=== PATIENT | female | born 1995 | race Caucasian/White ===

== ENCOUNTER 2020-04-11 09:46 | Inpatient (IN) | payer BC, MEDICAID ==
[2020-04-11] MEDS ORDERED: Nalbuphine 10 MG/ML Syringe IVPUSH PRN (10:10)
[2020-04-11] MEDS ORDERED: Sodium Chloride 0.9% 10 ML Syringe FLUSH PRN (10:10)
[2020-04-11] MEDS ORDERED: Oxytocin/Lactated Ringers 10 UNIT/1,000 ML BAG IV SCH ×2 (10:15→15:15)
[2020-04-11] MEDS: Lactated Ringers 1,000 ML IV SCH ×3 (10:30→12:33)
--- NOTE | 2020-04-11 10:34 | PCM.LDHP ---
L&D History of Present Illness - General Date of Service: 04/11/20 Admit Problem/Dx: Patient Status Order with Admit Dx/Problem 04/11/20 09:54 Patient Status [ADT] Routine 04/11/20 10:10 Patient Status [ADT] Routine Admission Diagnosis/Problem Admission Diagnosis/Problem Source of Information: Patient History Limitations: Reports: No Limitations - History of Present Illness Introduction:: Patient is a 24 y/o at 39 6/7 wks who presents in labor. History of c- section for FTP in 1st stage with 1st baby and then 2 successful VBACs. Contractions started around 0300 this AM. No LOF yet. Doing well. 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 (Approximate): - Past Surgical History Female Surgical History: Reports: Section Musculoskeletal Surgical History: Reports: Shoulder Surgery Social & Family History - Tobacco Use Tobacco Use Status *Q: Never Tobacco User - Alcohol Use Alcohol Use History: No - Recreational Drug Use Recreational Drug Use: No H&P Review of Systems - Review of Systems: Review Of Systems: See Below General: Reports: No Symptoms Pulmonary: Reports: No Symptoms Cardiovascular: Reports: No Symptoms Gastrointestinal: Reports: Abdominal Pain Genitourinary: Reports: No Symptoms Musculoskeletal: Reports: No Symptoms Psychiatric: Reports: No Symptoms Neurological: Reports: No Symptoms L&D Exam - Exam Exam: See Below - Vital Signs Weight: 111.538 kg - OB Specific Contraction Intensity: Moderate to Strong Movement: Active Heart Tones: Present Heart Tones per Min: 135 Heart Rate (FHR) Variability: Moderate (6-25 bmp) Presentation: Vertex - Gan Score Gan Score Cervix Position: Posterior Gan Score Consistency: Soft Gan Score Effacement: 51-70% Gan Score Dilation: > 5 cm (4-5) Gan Score Infant's Station: -2 Gan Score Total: 8 - Exam General: Alert, Oriented, Cooperative Lungs: Clear to Auscultation, Normal Respiratory Effort Cardiovascular: Regular Rate, Regular Rhythm GI/Abdominal Exam: Soft, Non-Tender Genitourinary: Normal external exam Extremities: Normal Inspection Skin: Warm, Dry, Intact - Problem List (1) 39 weeks gestation of SNOMED Code(s): 43731686 ICD Code: Z3A.39 - 39 WEEKS GESTATION OF Status: Acute Current Visit: Yes (2) History of delivery SNOMED Code(s): 398358408 ICD Code: Z98.891 - HISTORY OF UTERINE SCAR FROM PREVIOUS SURGERY Status: Acute Current Visit: Yes (3) History of SNOMED Code(s): 388913580, 154687114 ICD Code: Z98.891 - HISTORY OF UTERINE SCAR FROM PREVIOUS SURGERY Status: Acute Current Visit: Yes (4) Normal labor SNOMED Code(s): 99806427 ICD Code: O80 - ENCOUNTER FOR FULL-TERM UNCOMPLICATED DELIVERY; Z37.9 - OUTCOME OF DELIVERY, UNSPECIFIED Status: Acute Current Visit: Yes Problem List Initiated/Reviewed/Updated: Yes Orders Last 24hrs: Active Orders 24 hr Category Date Time Status Patient Status [ADT] Routine ADT 04/11/20 09:54 Active Patient Status [ADT] Routine ADT 04/11/20 10:10 Active Activity as Tolerated [RC] PFP Care 04/11/20 10:10 Active Communication Order [RC] ASDIRECTED Care 04/11/20 10:10 Active Heart Tones [RC] ASDIRECTED Care 04/11/20 10:10 Active Non Stress Test [RC] PER UNIT ROUTINE Care 04/11/20 09:54 Active Notify Provider [RC] PFP Care 04/11/20 10:10 Active Notify Provider [RC] PRN Care 04/11/20 10:10 Active Peripheral IV Care [RC] . DIRECTED Care 04/11/20 10:10 Active Vital Signs [RC] PER UNIT ROUTINE Care 04/11/20 09:54 Active Regular Diet [DIET] Diet 04/11/20 Lunch Active CBC WITH AUTO DIFF [HEME] Stat Lab 04/11/20 10:10 Ordered CORONAVIRUS COVID-19 JELANI [MOLEC] Stat Lab 04/11/20 10:21 Received RAPID PLASMA REAGIN,RPR [CHEM] Routine Lab 04/11/20 10:10 Ordered TYPE AND SCREEN [BBK] Stat Lab 04/11/20 10:10 Ordered Lactated Ringers [Ringers, Lactated] 1,000 ml Med 04/11/20 10:15 Active IV ASDIRECTED Nalbuphine [Nubain] Med 04/11/20 10:10 Active 10 mg IVPUSH Q2H PRN Oxytocin/Lactated Ringers [Pitocin in LR 10 Units/1,000 Med 04/11/20 10:15 Active ML] 10 unit in 1,000 ml IV .CONTINUOUS Sodium Chloride 0.9% [Saline Flush] Med 04/11/20 10:10 Active 10 ml FLUSH ASDIRECTED PRN Electronic Heart Tones Ext w TOCO [WOMSER] Oth 04/11/20 10:10 Ordered Routine Electronic Heart Tones Internal [WOMSER] Per Unit Oth 04/11/20 10:10 Ordered Routine Peripheral IV Insertion Adult [OM.PC] Routine Oth 04/11/20 10:10 Ordered Resuscitation Status Routine Resus Stat 04/11/20 09:54 Ordered Medication Orders Lactated Ringer's (Ringers, Lactated) 1,000 mls @ 100 mls/hr IV ASDIRECTED DUNCAN Oxytocin/Lactated Ringer's (Pitocin In Lr 10 Units/1,000 Ml) 10 unit in 1,000 mls @ 500 mls/hr IV .CONTINUOUS DUNCAN Nalbuphine HCl (Nubain) 10 mg IVPUSH Q2H PRN PRN Reason: Pain Sodium Chloride (Saline Flush) 10 ml FLUSH ASDIRECTED PRN PRN Reason: Keep Vein Open Assessment/Plan Comment:: * Labs done * GBS negative, no need for antibiotics * Pain control - plans epidural * Anticipate
[2020-04-11] MEDS ORDERED: ePHEDrine 50 MG/ML SDV IVPUSH PRN (11:07)
[2020-04-11] MEDS ORDERED: fentaNYL 100 MCG/2 ML SDV EPIDUR PRN (11:07)
[2020-04-11] MEDS ORDERED: Bupivacaine/fentaNYL/NS 100 ML Bag EPIDUR PRN (11:07)
[2020-04-11] MEDS ORDERED: diphenhydrAMINE 50 MG/ML SDV IVPUSH PRN (11:07)
--- NOTE | 2020-04-11 11:36 | PCM.PREANE ---
Preanesthetic Assessment - Procedure Proposed Procedure: kenisha - Anesthesia/Transfusion/Family Hx Anesthesia History: Prior Anesthesia Without Reaction Family History of Anesthesia Reaction: No Transfusion History: No Prior Transfusion(s) - Review of Systems General: No Symptoms Pulmonary: No Symptoms Cardiovascular: No Symptoms Gastrointestinal: No Symptoms Neurological: No Symptoms Other: Reports: None - Physical Assessment Vital Signs: Last Vital Signs Temp 97.8 F 04/11/20 09:54 Pulse 88 04/11/20 09:54 Resp 16 04/11/20 09:54 BP 122/66 04/11/20 09:54 Pulse Ox 100 04/11/20 09:54 Height: 5 ft 11 in Weight: 111.538 kg ASA Class: 2 Mental Status: Alert & Oriented x3 Airway Class: Mallampati = 1 Dentition: Reports: Normal Dentition Thyro-Mental Finger Breadths: 3 Mouth Opening Finger Breadths: 3 ROM/Head Extension: Full Lungs: Clear to Auscultation, Normal Respiratory Effort Cardiovascular: Regular Rate, Regular Rhythm - Lab Values: Laboratory Last Values WBC 9.46 K/mm3 (3.98-10.04) 04/11/20 10:40 RBC 4.22 M/mm3 (3.98-5.22) 04/11/20 10:40 Hgb 12.6 gm/dl (11.2-15.7) 04/11/20 10:40 Hct 37.0 % (34.1-44.9) 04/11/20 10:40 MCV 87.7 fl (79.4-94.8) 04/11/20 10:40 MCH 29.9 pg (25.6-32.2) 04/11/20 10:40 MCHC 34.1 g/dl (32.2-35.5) 04/11/20 10:40 RDW Std Deviation 40.9 fL (36.4-46.3) 04/11/20 10:40 Plt Count 231 K/mm3 (182-369) 04/11/20 10:40 MPV 9.2 fl (9.4-12.3) L 04/11/20 10:40 Neut % (Auto) 76.2 % (34.0-71.1) H 04/11/20 10:40 Lymph % (Auto) 16.0 % (19.3-51.7) L 04/11/20 10:40 [place] % (Auto) 7.1 % (4.7-12.5) 04/11/20 10:40 Eos % (Auto) 0.5 (0.7-5.8) L 04/11/20 10:40 Baso % (Auto) 0.1 % (0.1-1.2) 04/11/20 10:40 Neut # (Auto) 7.21 K/mm3 (1.56-6.13) H 04/11/20 10:40 Lymph # (Auto) 1.51 K/mm3 (1.18-3.74) 04/11/20 10:40 [place] # (Auto) 0.67 K/mm3 (0.24-0.36) H 04/11/20 10:40 Eos # (Auto) 0.05 K/mm3 (0.04-0.36) 04/11/20 10:40 Baso # (Auto) 0.01 K/mm3 (0.01-0.08) 04/11/20 10:40 SARS-CoV-2 RNA (JELANI) Negative (NEGATIVE) 04/11/20 10:21 - Allergies Allergies/Adverse Reactions: Allergies Allergy/AdvReac Type Severity Reaction Status Date / Time No Known Allergies Allergy Verified 04/11/20 10:30 - Blood Blood Available: No - Acknowledgements Anesthesia Type Planned: Epidural Pt an Appropriate Candidate for the Planned Anesthesia: Yes Alternatives and Risks of Anesthesia Discussed w Pt/Guardian: Yes Pt/Guardian Understands and Agrees with Anesthesia Plan: Yes PreAnesthesia Questionnaire Cardiovascular History: Reports: None Respiratory History: Reports: None Gastrointestinal History: Reports: None 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 - Past Surgical History Female Surgical History: Reports: Section Musculoskeletal Surgical History: Reports: Shoulder Surgery - SUBSTANCE USE Tobacco Use Status *Q: Never Tobacco User Tobacco Use Within Last Twelve Months: No Second Hand Smoke Exposure: No Days Per Week of Alcohol Use: 0 Recreational Drug Use History: No - HOME MEDS Home Medications: Home Meds Pnv No.95/Ferrous Fum/Folic AC [ Vitamin Tablet] 1 tab PO DAILY 04/11/20 [History] - CURRENT (IN HOUSE) MEDS Current Meds: Current Medications Diphenhydramine HCl (Benadryl) 25 mg IVPUSH Q6H PRN PRN Reason: pruritis Ephedrine Sulfate (Ephedrine Sulfate) 5 mg IVPUSH ASDIRECTED PRN PRN Reason: Hypotension Fentanyl (Sublimaze) 100 mcg EPIDUR Q3H PRN PRN Reason: Pain Last Admin: 04/11/20 11:16 Dose: 100 mcg Documented by: Fentanyl/Bupivacaine HCl (Fentanyl/Bupivacaine/Ns 2 Mcg-0.125% 100 Ml) 100 ml EPIDUR ASDIRECTED PRN PRN Reason: Pain Last Admin: 04/11/20 11:16 Dose: 100 ml Documented by: Lactated Ringer's (Ringers, Lactated) 1,000 mls @ 100 mls/hr IV ASDIRECTED DUNCAN Last Admin: 04/11/20 11:18 Dose: 100 mls/hr Documented by: Oxytocin/Lactated Ringer's (Pitocin In Lr 10 Units/1,000 Ml) 10 unit in 1,000 mls @ 500 mls/hr IV .CONTINUOUS DUNCAN Nalbuphine HCl (Nubain) 10 mg IVPUSH Q2H PRN PRN Reason: Pain Sodium Chloride (Saline Flush) 10 ml FLUSH ASDIRECTED PRN PRN Reason: Keep Vein Open
[2020-04-11] MEDS ORDERED: Bupivacaine 0.25% 10 ML SDV ONE (16:00)
--- NOTE | 2020-04-11 17:18 | PCM.DEL ---
L & D Note - General Info Date of Service: 04/11/20 Mother's Due Date: 04/12/20 - Delivery Note Labor: Spontaneous Delivery Outcome: Livebirth Infant Delivery Method: Spontaneous Vaginal Delivery-Single Presentation: Right Occiput Anterior (HUBER) Nuchal Cord: None Anesthesia Type: Epidural Amniotic Fluid Description: Clear Episiotomy Type: None Laceration: None Placenta: Intact, Spontaneous Cord: 3 Vessels Estimated Blood Loss: 100 Resuscitation Needed: No [place]: Suctioned, Stimulated, Warmed, [place] Used Provider: Alejandra Melara Score 1 min: 8 Score 5 min: 9 Delivery Comments (Free Text/Narrative):: 24 year old female who presented in spontaneous labor at 39+6 weeks gestation. She has had a prior , but 2 successful 's. She had AROM done to augment labor. 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 Dr. Salamanca asked me to come down to deliver baby since she had just started with the . When I arrived, patient was in no distress but feeling pressure. We had her prepped and start pushing. Head was delivered with the first push from HUBER presentation, there was no nuchal cord and then the rest of the baby delivered without difficulty. Time of delivery was 1653, baby girl. She cried immediately and had good tone. She was dried and stimulated and placed on mother's abdomen. Mouth and nose were suctioned with bulb suction. Once cord stopped pulsating it was clamped and cut. There were 3 vessels in the cord. Placenta delivered spontaneously at 1658 and it was intact. There was no perineal tear. Fundus was firm and EBL was 100 ml. Pitocin IV bolus was started after delivery of the baby. Both Mom and baby were left in the delivery room in stable condition. - General Info Date of Service: 04/11/20 Admission Dx/Problem (Free Text): Patient Status Order with Admit Dx/Problem 04/11/20 09:54 Patient Status [ADT] Routine 04/11/20 10:10 Patient Status [ADT] Routine Admission Diagnosis/Problem Admission Diagnosis/Problem - Review of Systems General: Reports: No Symptoms HEENT: Reports: No Symptoms Pulmonary: Reports: No Symptoms Cardiovascular: Reports: No Symptoms Gastrointestinal: Reports: No Symptoms Genitourinary: Reports: No Symptoms Musculoskeletal: Reports: No Symptoms Skin: Reports: No Symptoms Neurological: Reports: No Symptoms Psychiatric: Reports: No Symptoms - Patient Data Vitals - Most Recent: Last Vital Signs Temp 36.6 C 04/11/20 09:54 Pulse 88 04/11/20 09:54 Resp 16 04/11/20 09:54 BP 122/66 04/11/20 09:54 Pulse Ox 100 04/11/20 09:54 Weight - Most Recent: 111.538 kg I&O - Last 24 Hours: Intake & Output 04/11/20 04/11/20 04/11/20 06:59 14:59 22:59 Intake Total 1000 Balance 1000 Lab Results Last 24 Hours: Laboratory Results - last 24 hr 04/11/20 04/11/20 04/11/20 Range/Units 10:21 10:40 10:40 WBC 9.46 (3.98-10.04) K/mm3 RBC 4.22 (3.98-5.22) M/mm3 Hgb 12.6 (11.2-15.7) gm/dl Hct 37.0 (34.1-44.9) % MCV 87.7 (79.4-94.8) fl MCH 29.9 (25.6-32.2) pg MCHC 34.1 (32.2-35.5) g/dl RDW Std Deviation 40.9 (36.4-46.3) fL Plt Count 231 (182-369) K/mm3 MPV 9.2 L (9.4-12.3) fl Neut % (Auto) 76.2 H (34.0-71.1) % Lymph % (Auto) 16.0 L (19.3-51.7) % [place] % (Auto) 7.1 (4.7-12.5) % Eos % (Auto) 0.5 L (0.7-5.8) Baso % (Auto) 0.1 (0.1-1.2) % Neut # (Auto) 7.21 H (1.56-6.13) K/mm3 Lymph # (Auto) 1.51 (1.18-3.74) K/mm3 [place] # (Auto) 0.67 H (0.24-0.36) K/mm3 Eos # (Auto) 0.05 (0.04-0.36) K/mm3 Baso # (Auto) 0.01 (0.01-0.08) K/mm3 SARS-CoV-2 RNA (JELANI) Negative (NEGATIVE) Blood Type O POSITIVE Gel Antibody Screen Negative Med Orders - Current: Current Medications Diphenhydramine HCl (Benadryl) 25 mg IVPUSH Q6H PRN PRN Reason: pruritis Ephedrine Sulfate (Ephedrine Sulfate) 5 mg IVPUSH ASDIRECTED PRN PRN Reason: Hypotension Fentanyl (Sublimaze) 100 mcg EPIDUR Q3H PRN PRN Reason: Pain Last Admin: 04/11/20 11:16 Dose: 100 mcg Documented by: Fentanyl/Bupivacaine HCl (Fentanyl/Bupivacaine/Ns 2 Mcg-0.125% 100 Ml) 100 ml EPIDUR ASDIRECTED PRN PRN Reason: Pain Last Admin: 04/11/20 11:16 Dose: 100 ml Documented by: Lactated Ringer's (Ringers, Lactated) 1,000 mls @ 100 mls/hr IV ASDIRECTED DUNCAN Last Admin: 04/11/20 12:33 Dose: 100 mls/hr Documented by: Oxytocin/Lactated Ringer's (Pitocin In Lr 10 Units/1,000 Ml) 10 unit in 1,000 mls @ 500 mls/hr IV .CONTINUOUS DUNCAN Oxytocin/Lactated Ringer's (Pitocin In Lr 10 Units/1,000 Ml) 10 unit in 1,000 mls @ 12 mls/hr IV TITRATE DUNCAN; Protocol Last Admin: 04/11/20 15:13 Dose: 2 munits/min, 12 mls/hr Documented by: Nalbuphine HCl (Nubain) 10 mg IVPUSH Q2H PRN PRN Reason: Pain Sodium Chloride (Saline Flush) 10 ml FLUSH ASDIRECTED PRN PRN Reason: Keep Vein Open - Exam General: Alert, Oriented HEENT: Mucous Membr. Moist/[place] Neck: Supple Lungs: Normal Respiratory Effort Cardiovascular: Regular Rate, Regular Rhythm (Female) Exam: Normal External Exam Skin: Warm Neurological: No New Focal Deficit Psy/Mental Status: Alert, Normal Affect, Normal Mood - Problem List & Annotations (1) , delivered, current hospitalization SNOMED Code(s): 255260414 Code(s): O34.219 - MATERNAL CARE FOR UNSP TYPE SCAR FROM PREVIOUS DEL Status: Acute Current Visit: Yes (2) 39 weeks gestation of SNOMED Code(s): 75847487 Code(s): Z3A.39 - 39 WEEKS GESTATION OF Status: Acute Current Visit: Yes (3) History of SNOMED Code(s): 779829899, 940654478 Code(s): Z98.891 - HISTORY OF UTERINE SCAR FROM PREVIOUS SURGERY Status: Acute Current Visit: Yes (4) History of delivery SNOMED Code(s): 926264173 Code(s): Z98.891 - HISTORY OF UTERINE SCAR FROM PREVIOUS SURGERY Status: Acute Current Visit: Yes - Problem List Review Problem List Initiated/Reviewed/Updated: Yes - Assessment Assessment:: after spontaneous onset of labor. Uncomplicated delivery. Minimal blood loss Plans to breast feed. - Plan Plan:: 1. Routine care and support. 2. Dr. Salamanca will assume care and round on her over the weekend.
[2020-04-11] MEDS ORDERED: Witch Hazel Medicated Pads 40/Jar TOP PRN (18:10)
[2020-04-11] MEDS ORDERED: Benzocaine/Menthol 20%-0.5% Spray 56 GM Canister TOP PRN (18:10)
[2020-04-11] MEDS ORDERED: Simethicone 80 MG Tab.Chew PO PRN (18:10)
[2020-04-11] MEDS ORDERED: Acetaminophen 325 MG Tab PO PRN (18:10)
[2020-04-11] MEDS ORDERED: Docusate Sodium 100 MG Cap PO PRN (18:10)
[2020-04-11] MEDS: Ibuprofen 800 MG Tab PO PRN (21:57)
[2020-04-12] MEDS: Ibuprofen 800 MG Tab PO PRN ×2 (06:35→15:30)
--- NOTE | 2020-04-12 06:54 | PCM.DCSUM1 ---
Discharge Summary - Hospital Course Brief History: Desires discharge at day #1 Diagnosis: Stroke: No - Discharge Data Discharge Date: 04/12/20 Discharge Disposition: Home, Self-Care 01 Condition: Good - Referral to Home Health Primary Care Physician: Isabelle Centeno MD - Patient Instructions Diet: Usual Diet as Tolerated Activity: No Strenuous Activities Driving: May Drive Today Showering/Bathing: May Shower Notify Provider of: Fever, Increased Pain, Swelling and Redness, Drainage, Nausea and/or Vomiting - Discharge Plan *PRESCRIPTION DRUG MONITORING PROGRAM REVIEWED*: No *COPY OF PRESCRIPTION DRUG MONITORING REPORT IN PATIENT BJORN: No Home Medications: Home Meds Pnv No.95/Ferrous Fum/Folic AC [ Vitamin Tablet] 1 tab PO DAILY 04/11/20 [History] Referrals: Isabelle Centeno MD [Primary Care Provider] - (2 weeks) - Discharge Summary/Plan Comment DC Time >30 min.: No - Patient Data Vitals - Most Recent: Last Vital Signs Temp 36.1 C 04/12/20 03:16 Pulse 52 L 04/12/20 03:16 Resp 16 04/12/20 03:16 BP 120/65 04/12/20 03:16 Pulse Ox 100 04/12/20 03:16 Weight - Most Recent: 111.538 kg I&O - Last 24 hours: Intake & Output 04/11/20 04/11/20 04/12/20 14:59 22:59 06:59 Intake Total 1000 Balance 1000 Lab Results - Last 24 hrs: Laboratory Results - last 24 hr 04/11/20 04/11/20 04/11/20 Range/Units 10:21 10:40 10:40 WBC 9.46 (3.98-10.04) K/mm3 RBC 4.22 (3.98-5.22) M/mm3 Hgb 12.6 (11.2-15.7) gm/dl Hct 37.0 (34.1-44.9) % MCV 87.7 (79.4-94.8) fl MCH 29.9 (25.6-32.2) pg MCHC 34.1 (32.2-35.5) g/dl RDW Std Deviation 40.9 (36.4-46.3) fL Plt Count 231 (182-369) K/mm3 MPV 9.2 L (9.4-12.3) fl Neut % (Auto) 76.2 H (34.0-71.1) % Lymph % (Auto) 16.0 L (19.3-51.7) % [place] % (Auto) 7.1 (4.7-12.5) % Eos % (Auto) 0.5 L (0.7-5.8) Baso % (Auto) 0.1 (0.1-1.2) % Neut # (Auto) 7.21 H (1.56-6.13) K/mm3 Lymph # (Auto) 1.51 (1.18-3.74) K/mm3 [place] # (Auto) 0.67 H (0.24-0.36) K/mm3 Eos # (Auto) 0.05 (0.04-0.36) K/mm3 Baso # (Auto) 0.01 (0.01-0.08) K/mm3 RPR Non-reactive (NONREACTIVE) SARS-CoV-2 RNA (JELANI) Negative (NEGATIVE) Blood Type Gel Antibody Screen 04/11/20 Range/Units 10:40 WBC (3.98-10.04) K/mm3 RBC (3.98-5.22) M/mm3 Hgb (11.2-15.7) gm/dl Hct (34.1-44.9) % MCV (79.4-94.8) fl MCH (25.6-32.2) pg MCHC (32.2-35.5) g/dl RDW Std Deviation (36.4-46.3) fL Plt Count (182-369) K/mm3 MPV (9.4-12.3) fl Neut % (Auto) (34.0-71.1) % Lymph % (Auto) (19.3-51.7) % [place] % (Auto) (4.7-12.5) % Eos % (Auto) (0.7-5.8) Baso % (Auto) (0.1-1.2) % Neut # (Auto) (1.56-6.13) K/mm3 Lymph # (Auto) (1.18-3.74) K/mm3 [place] # (Auto) (0.24-0.36) K/mm3 Eos # (Auto) (0.04-0.36) K/mm3 Baso # (Auto) (0.01-0.08) K/mm3 RPR (NONREACTIVE) SARS-CoV-2 RNA (JELANI) (NEGATIVE) Blood Type O POSITIVE Gel Antibody Screen Negative Med Orders - Current: Current Medications Acetaminophen (Tylenol) 650 mg PO Q4H PRN PRN Reason: mild pain or fever Benzocaine/Menthol (Dermoplast Pain Relief [place]) 0 gm TOP ASDIRECTED PRN PRN Reason: Perineal Comfort Measure Docusate Sodium (Colace) 100 mg PO BID PRN PRN Reason: Constipation Ibuprofen (Motrin) 800 mg PO Q6H PRN PRN Reason: Mild pain or fever Last Admin: 04/12/20 06:35 Dose: 800 mg Documented by: Kristen Multivit/[place]/Iron/Folic Ac ( Plus Iron) 1 each PO DAILY DUNCAN Simethicone (Simethicone) 80 mg PO Q4H PRN PRN Reason: Gas Witch Joanna (Tucks) 1 pad TOP ASDIRECTED PRN PRN Reason: Perineal Comfort Measure Discontinued Medications Diphenhydramine HCl (Benadryl) 25 mg IVPUSH Q6H PRN PRN Reason: pruritis Ephedrine Sulfate (Ephedrine Sulfate) 5 mg IVPUSH ASDIRECTED PRN PRN Reason: Hypotension Fentanyl (Sublimaze) 100 mcg EPIDUR Q3H PRN PRN Reason: Pain Last Admin: 04/11/20 11:16 Dose: 100 mcg Documented by: Fentanyl/Bupivacaine HCl (Fentanyl/Bupivacaine/Ns 2 Mcg-0.125% 100 Ml) 100 ml EPIDUR ASDIRECTED PRN PRN Reason: Pain Last Admin: 04/11/20 11:16 Dose: 100 ml Documented by: Lactated Ringer's (Ringers, Lactated) 1,000 mls @ 100 mls/hr IV ASDIRECTED DUNCAN Last Admin: 04/11/20 12:33 Dose: 100 mls/hr Documented by: Oxytocin/Lactated Ringer's (Pitocin In Lr 10 Units/1,000 Ml) 10 unit in 1,000 mls @ 500 mls/hr IV .CONTINUOUS DUNCAN Oxytocin/Lactated Ringer's (Pitocin In Lr 10 Units/1,000 Ml) 10 unit in 1,000 mls @ 12 mls/hr IV TITRATE DUNCAN; Protocol Last Titration: 04/11/20 16:55 Dose: 500 munits/min, 3,000 mls/hr Documented by: Nalbuphine HCl (Nubain) 10 mg IVPUSH Q2H PRN PRN Reason: Pain Sodium Chloride (Saline Flush) 10 ml FLUSH ASDIRECTED PRN PRN Reason: Keep Vein Open
[2020-04-12] MEDS ORDERED: Prenatal Multivitamin with Calcium/Folic Acid/Iron Tab PO SCH (09:00)
[2020-04-13] MEDS: Ibuprofen 800 MG Tab PO PRN (01:07)
--- NOTE | 2020-04-13 07:14 | PCM.SN.2 ---
- Free Text/Narrative Note: Plan to discharge yesterday. Needed to stay for reason. Doing well today and will discharge today.
== END 2020-04-13 09:37 | disposition home or self-care (01) | DRG 807 ==
LOC: JD.OBCHECK 09:46 → JD.OB 09:46 → JD.OBCHECK 10:10 → OBSVTOIN 16:53 → JD.OB 16:54
PROVIDERS: ADMIT Obstetrics & Gynecology; ATTEND Obstetrics & Gynecology
PROC: 10E0XZZ Delivery of Products of Conception, External Approach (ICD-10-PCS; principal; 2020-04-11)
PROC: 10907ZC Drainage of Amniotic Fluid, Therapeutic from Products of Conception, Via Natural or Artificial Opening (ICD-10-PCS; 2020-04-11)
PROC: 3E0R3BZ Introduction of Anesthetic Agent into Spinal Canal, Percutaneous Approach (ICD-10-PCS; 2020-04-11)
DX: O80 Encounter for full-term uncomplicated delivery (principal); Z37.0 Single live birth; Z3A.39 39 weeks gestation of pregnancy; Z98.891 History of uterine scar from previous surgery; Z20.828 Contact with and (suspected) exposure to other viral communicable diseases
CPT/HCPCS: 01967; 36415; 51702; 59025; 59409; 85025; 86592; 86850; 86900; 86901; A9270-GY; J2590; J3010; J3490; J7120; U0002